=== PATIENT | female | born 1960 | race Caucasian/White ===

== ENCOUNTER → 2023-05-17 09:12 | Outpatient (REF) | payer BC, SELFPAY | LOC: HWRAD 09:12 | PROVIDERS: ATTENDING PHYSICIAN Family Medicine | DX: M25.511 Pain in right shoulder (principal) | CPT/HCPCS: 73030 ==

== ENCOUNTER → 2024-01-17 09:47 | Outpatient (REF) | payer MEDICARE, OTHER, SELFPAY | LOC: EMG 09:47 | PROVIDERS: ATTENDING PHYSICIAN Family Medicine | DX: G58.9 Mononeuropathy, unspecified (principal); R20.0 Anesthesia of skin | CPT/HCPCS: 95886; 95910 ==

== ENCOUNTER → 2024-02-25 06:34 | Outpatient (REF) | payer MEDICARE, SELFPAY | LOC: MRI 3T 06:34 | PROVIDERS: ATTENDING PHYSICIAN Orthopaedic Surgery; FAMILY PHYSICIAN Family Medicine | DX: M54.12 Radiculopathy, cervical region (principal) | CPT/HCPCS: 72141 ==

== ENCOUNTER → 2024-02-28 10:40 | Outpatient (REF) | payer MEDICARE, SELFPAY | LOC: RAD 10:40 | PROVIDERS: ATTENDING PHYSICIAN Family Medicine | DX: R22.9 Localized swelling, mass and lump, unspecified (principal) | CPT/HCPCS: 76536 ==

== ENCOUNTER 2024-08-21 10:37 | Emergency (ER) | payer MEDICARE, SELFPAY ==
[2024-08-21 10:46] VITALS: BP 139/101
[2024-08-21 13:42] VITALS: BP 137/89
[2024-08-21 15:52] VITALS: BP 172/87
--- NOTE | 2024-08-21 15:56 | ED.GENMED ---
History of Present Illness
General
Chief Complaint: Abdominal Symptoms
Source: patient
Exam Limitations: none
Time Seen by Provider: 08/21/24 15:33
History of Present Illness
History of Present Illness:
64-year-old female presents with constipation. She has not had normal bowel movement in a week. She does note some mild lower abdominal discomfort. She has tried Dulcolax to try to glycerin suppository and just darted MiraLAX last night. Dates
that her hemorrhoids are flaring up because of the constipation. No vomiting. She does have history of gastric bypass surgery. No fever. She has a history of byn-qjqptxs-derzawvwc diabetes, hypertension. She spoke with her family doctor and was
referred here for evaluation
Phy Exam
Physical Exam
Physical Exam:
General: Well-appearing female no acute respiratory distress
HEENT: Normocephalic atraumatic
Heart: RRR, no mumurs
Lungs: CTA
Abd: soft, tender to lower abdomen
Rectal: Performed with female plant operator, nurse Theresa, in the room demonstrates small external nonthrombosed hemorrhoid. There is softer stool noted more proximally in the rectal area but no impaction
Course
Orders/Labs/Results
Orders:
Orders
08/21/24 15:47
CT Abd/pelvis W Iv Cont Urgent
Comment:
Reason For Exam: constipation
08/21/24 16:01
Complete Blood Count/With Diff Urgent
Comprehensive Metabolic Panel Urgent
Lipase Urgent
Comment: ADD ON
08/21/24 16:56
Add On- LAB Urgent
Tests Added?: lipase
08/21/24 17:27
Enema- Treatment ONCE
Type: Milk of Molasses
Abnormal Lab Results
08/21/24
16:01
MPV 11.2 H fL
(7.4-10.4)
Absolute Monos (auto) 0.7 H 10^3/uL
(0.1-0.6)
Glucose 106 H mg/dl
(70-99)
08/21/24 16:01
08/21/24 16:01
Vital Signs
Initial and Last Documented VS:
Initial Vital Signs
Temp Pulse Resp BP Pulse Ox
98.0 F 92 18 139/101 98
08/21/24 10:46 08/21/24 10:46 08/21/24 10:46 08/21/24 10:46 08/21/24 10:46
Last Documented Vital Signs
Temp Pulse Resp BP Pulse Ox
98.0 F 81 18 152/78 97
08/21/24 10:46 08/21/24 17:27 08/21/24 17:27 08/21/24 17:25 08/21/24 17:25
MDM/Problems Addressed
Differential Diagnosis Includes:
Constipation. Consider bowel obstruction versus constipation versus colitis
Nothing to disimpact manually on exam. Given the history of abdominal surgery and constipation and lower abdominal pain will CT of the abdomen
*Critical Care Note
Total Time (30-74mins, 75-104mins- exclusive of procedures): Not Applicable
Update Note
Update Note:
Ordered CT of abdomen which demonstrated large amount of stool in the rectum. There is potentially sterile coral colitis early in its development. Labs reviewed without significant finding white count normal. Patient given milk of molasses enema
and is now feeling much better after large bowel movement. No fevers here no abdominal pain. Recommended MiraLAX for continued constipation and return precautions were given
ED Attending Note
-
Portions of this chart may have been created with voice recognition software.� Occasional wrong word or��sound alike� substitutions may have occurred due to the inherent limitations of voice recognition software.
Discharge Plan
Departure
Patient Disposition: Home (Routine Discharge)
Date of Disposition: 08/21/24
Time of Disposition: 18:27
Patient with high blood pressure during this ER visit?: No
Discharge Problem:
Constipation
Instructions: Constipation, Adult (DC)
Referrals:
Gelacio Loving, [Family Provider] -
Activity Restrictions/Additional Instructions:
Continue MiraLAX daily. Drink plenty of fluids. Return if worse otherwise follow-up with your doctor
Interventions
Interventions:
*Risk Screen - Suicide Last Done: 08/21/24 10:46
*General Assessment Last Done: 08/21/24 10:46
YM-Oafmau-Vrqbiromjt Assessment Last Done: 08/21/24 17:28
Discharge Date and Time
Print Language: MAORI
[2024-08-21 16:15] LABS: % Basophils 0.4 % (0-2); % Eosinophils 1.6 % (0-6); % Immature Granulocytes 0.1 % (0-0.5); % Lymphocytes 24.8 % (20.5-51.1); % Monocytes 8.5 % (1.7-9.3); % Neutrophils 64.6 % (42.2-75.2); Absolute Eosinophils 0.1 10^3/uL (0-0.7); Absolute Lymphocytes 2.1 10^3/uL (1.2-3.4); Absolute Monocytes 0.7 10^3/uL (0.1-0.6); Absolute Neutrophils 5.3 10^3/uL (1.4-6.5); Hematocrit 38.1 % (37.0-47.0); Hemoglobin 13.1 g/dL (12.0-16.0); Mean Corp Hgb Conc. 34.4 g/dL (33.0-37.0); Mean Corpuscular Hgb 28.9 pg (27.0-31.0); Mean Corpuscular Volume 83.9 fL (81.0-99.0); Mean Platelet Volume 11.2 fL (7.4-10.4); Nucleated Red Blood Cells % 0 %; Platelet Count 274 10^3/uL (130-400); Red Blood Cell Count 4.54 10^6/uL (4.20-5.40); Red Cell Dist. Width 13.2 % (11.5-14.5); White Blood Cell Count 8.3 10^3/uL (4.8-10.8)
[2024-08-21 16:33] LABS: ALT (SGPT) 21 U/L (0-35); AST (SGOT) 20 U/L (14-36); Albumin 4.6 g/dl (3.5-5.0); Alkaline Phosphatase 87 U/L (38-126); Blood Urea Nitrogen 17 mg/dl (7-17); Calcium 9.7 mg/dl (8.4-10.2); Carbon Dioxide 27 mmol/L (22-30); Chloride 105 mmol/L (98-107); Glucose 106 mg/dl (70-99); Potassium 4.4 mmol/L (3.5-5.1); Sodium 142 mmol/L (135-145); Total Bilirubin 0.6 mg/dl (0.2-1.3); Total Protein 7.3 g/dl (6.3-8.2); eGFR > 60.00
[2024-08-21 17:25] VITALS: BP 152/78
[2024-08-21 17:27] VITALS: BMI 24.9
[2024-08-21 17:32] LABS: Lipase 94 U/L (23-300)
== END 2024-08-21 18:40 | disposition home or self-care (01) ==
LOC: EMR 10:37
PROVIDERS: Physician Assistant; EMERGENCY PHYSICIAN Student in an Organized Health Care Education/Training Program; FAMILY PHYSICIAN Family Medicine
DX: K59.00 Constipation, unspecified (principal); K64.4 Residual hemorrhoidal skin tags; E11.9 Type 2 diabetes mellitus without complications; I10 Essential (primary) hypertension; Z98.84 Bariatric surgery status
CPT/HCPCS: 99284; 74177; 80053; 83690; 85025; Q9967